=== PATIENT | male | born 1980 | race Hispanic/Latino ===

== ENCOUNTER 2019-01-30 13:34 | Emergency (ER) | payer OTHER ==
[~2019-01-30] VITALS: Ht 68 cm; Wt 90.7 kg
== END 2019-01-30 15:54 | disposition home or self-care (01) ==
LOC: ED 13:34 → EDBD 13:37 → ED 13:37
DX: M25.561 Pain in right knee (principal); M25.562 Pain in left knee; I10 Essential (primary) hypertension
CPT/HCPCS: 73560; 99283-25